=== PATIENT | male | born 1990 | race American Indian/Alaskan Native ===

== ENCOUNTER 2020-03-30 10:53 | Emergency (ER) | payer SELFPAY ==
[2020-03-30 11:14] VITALS: BP 139/81
--- NOTE | 2020-03-30 12:43 | Emergency Department Report ---
- General Chief Complaint: Extremity Injury, Upper Stated Complaint: RT THUMB INJURY/PAIN Time Seen by Provider: 03/30/20 12:38 Source: patient Mode of arrival: Ambulatory Limitations: No Limitations - History of Present Illness Initial Comments: The patient was evaluated in the emergency department for symptoms described in the history of present illness. He/she was evaluated in the context of the global COVID-19 pandemic, which necessitated consideration that the patient might be at risk for infection with the virus that causes COVID-19. Institutional protocols and algorithms that pertain to the evaluation of patients at risk for COVID-19 are in a state of rapid change based on information released by regulatory bodies including the CDC and federal and state organizations. These policies and algorithms were followed during the patient's care in the emergency department. Please note that these policies, procedures and recommendations changed on a rapid basis. 30-year-old -[place] male presents to the emergency room for a wound check of his right thumb status post injury 2 weeks ago while at work. Patient reports that he had been seen at [facility] he is waiting for an appointment for the hand specialist. He was placed on antibiotics and is still taking it. He states that the ibuprofen is not holding his pain. Patient reports that he is cleaning it with antibiotic soap. Patient denies any fever chills. Onset/Timin -: week(s) Extremity Location: Right: Hand (Right thumb) Place: home Patient Tetanus UTD: Yes Context: accidental Associated Symptoms: pain - Related Data Previous Rx's Medication Instructions Recorded Last Taken Type Ibuprofen [Motrin 600 MG tab] 600 mg PO Q8H PRN #30 tablet 03/30/20 Unknown Rx traMADoL [Ultram 50 MG tab] 50 mg PO Q6HR PRN #12 tablet 03/30/20 Unknown Rx Allergies Allergy/AdvReac Type Severity Reaction Status Date / Time No Known Allergies Allergy Unverified 03/30/20 11:12 ED Review of Systems ROS: Stated complaint: RT THUMB INJURY/PAIN Other details as noted in HPI Comment: All other systems reviewed and negative ED Past Medical Hx - Past Medical History Previous Medical History?: No - Surgical History Past Surgical History?: No - Social History Smoking Status: Current Every Day Smoker Substance Use Type: Alcohol - Medications Home Medications: Home Medications Medication Instructions Recorded Confirmed Last Taken Type Ibuprofen [Motrin 600 MG tab] 600 mg PO Q8H PRN #30 tablet 03/30/20 Unknown Rx traMADoL [Ultram 50 MG tab] 50 mg PO Q6HR PRN #12 tablet 03/30/20 Unknown Rx ED Physical Exam - General Limitations: No Limitations General appearance: alert, in no apparent distress - Head Head exam: Present: atraumatic, normocephalic - Eye Eye exam: Present: normal appearance - ENT ENT exam: Present: normal exam, mucous membranes moist - Neck Neck exam: Present: full ROM - Respiratory Respiratory exam: Absent: accessory muscle use - Back Exam Back exam: Present: normal inspection - Neurological Exam Neurological exam: Present: alert, oriented X3 - Psychiatric Psychiatric exam: Present: normal affect, normal mood - Skin Skin exam: Present: erythema - Expanded Skin Exam Expanded Distribution of rash: RUE Description of rash: Present: tenderness, erythematous, other (The glove with thick yellowish discharge that is adhered to the skin) ED Course Vital Signs 03/30/20 11:14 Temperature 98.5 F Pulse Rate 85 Respiratory 16 Rate Blood Pressure 139/81 O2 Sat by Pulse 100 Oximetry ED Medical Decision Making - Medical Decision Making 30-year-old -[place] male presents to the emergency room for a wound check of his right thumb status post injury 2 weeks ago while at work. Patient reports that he had been seen at [facility] he is waiting for an appointment for the hand specialist. He was placed on antibiotics and is still taking it. He states that the ibuprofen is not holding his pain. Patient reports that he is cleaning it with antibiotic soap. Patient denies any fever chills. Wound cleaned with Betadine soap and water place with a new bandage. Instructed patient to continue with antibiotics prescription for some ibuprofen and tramadol to keep his appointment with hand specialist. Critical care attestation.: If time is entered above; I have spent that time in minutes in the direct care of this critically ill patient, excluding procedure time. ED Disposition Clinical Impression: Visit for wound check Disposition: DC- TO HOME OR SELFCARE Is pt being admited?: No Does the pt Need Aspirin: No Condition: Stable Additional Instructions: Keep wound clean and dry use triple antibiotics cream. Complete your antibiotics that you were prescribed to by [facility]. Take pain medication as needed. Keep your appointment with the hand specialist. Prescriptions: Ibuprofen [Motrin 600 MG tab] 600 mg PO Q8H PRN #30 tablet PRN Reason: Pain traMADoL [Ultram 50 MG tab] 50 mg PO Q6HR PRN #12 tablet PRN Reason: Pain Referrals: Your, hand specialist [Other] - 3-5 Days Forms: Work/School Release Form(ED)
== END 2020-03-30 13:13 | disposition home or self-care (01) ==
LOC: ED 10:53
DX: M25.541 Pain in joints of right hand (principal); F17.200 Nicotine dependence, unspecified, uncomplicated; Z79.899 Other long term (current) drug therapy; Z51.89 Encounter for other specified aftercare
CPT/HCPCS: 99282